=== PATIENT | female | born 1995 | race Caucasian/White ===

== ENCOUNTER 2016-05-07 23:15 | Emergency (ER) | payer BC ==
[2016-05-08] MEDS ORDERED: DIPHENHYDRAMINE 50 MG/ML VIAL ONE (00:16)
[2016-05-08] MEDS ORDERED: METOCLOPRAMIDE 10 MG/2 ML VIAL ONE (00:16)
[2016-05-08] MEDS ORDERED: SODIUM CHLORIDE 0.9% 1,000 ML ONE (00:17)
[2016-05-08] MEDS ORDERED: KETOROLAC 30 MG/ML VIAL ONE (00:17)
[2016-05-08] MEDS ORDERED: CEFTRIAXONE 1 GM VIAL ONE (00:55)
[2016-05-08] MEDS ORDERED: SODIUM CHLORIDE 0.9% 100 ML IV ONE (00:55)
== END 2016-05-08 02:10 | disposition home or self-care (01) ==
LOC: ER 23:15
DX: R51 Headache (principal)
CPT/HCPCS: 70450; 81001; 81025; 87077; 87088; 87186; 96361; 96365; 96375